=== PATIENT | male | born 1985 ===

== ENCOUNTER 2019-01-05 06:40 | Day surgery (SDC) | payer OTHER ==
[2019-01-05] MEDS ORDERED: PERCOCET 5-3251 EACH PO (13:20)
[2019-01-05] MEDS ORDERED: NEURONTIN300 MG PO (13:21)
[2019-01-05] MEDS ORDERED: LEVAQUIN750 MG PO (13:21)
== END 2019-01-05 15:30 | disposition home or self-care (01) ==
LOC: CIR.AMB 06:40
DX: D17.1 Benign lipomatous neoplasm of skin and subcutaneous tissue of trunk (principal)